=== PATIENT | female | born 1980 | race Caucasian/White ===

== ENCOUNTER 2016-11-07 13:01 | Emergency (ER) | payer BC ==
[2016-11-07 13:22] VITALS: BP 115/77
--- NOTE | 2016-11-07 13:49 | UC ---
Abdominal Pain Female HPI - HPI Summary HPI Summary: patient presents with significatn ULQ pain that radiates to her back. she has had a few day of diarrhea, but denies any nausea/vomiting or fever. - History of Current Complaint Chief Complaint: UCGI Stated Complaint: ABD/BACK PAIN Time Seen by Provider: 11/07/16 13:31 Hx Obtained From: Patient Hx Last Menstrual Period: 10/11/16 ?: No Onset/Duration: Sudden Onset, Lasting Hours Timing: Constant Severity Initially: Moderate Severity Currently: Severe Location: Discrete At: LUQ Radiates: Yes Radiates to: Back Character: Burning, Cramping, Sharp Aggravating Factor(s): Movement, Deep Breaths Alleviating Factor(s): Nothing Associated Signs and Symptoms: Positive: Back Pain, Decreased Appetite, Diarrhea - Risk Factors Ectopic Risk Factor: Negative Ovarian Torsion Risk Factor: Negative Allergies/Adverse Reactions: Allergies Allergy/AdvReac Type Severity Reaction Status Date / Time No Known Allergies Allergy Verified 11/07/16 13:22 Home Medications: Home Medications Meloxicam [Mobic] 15 mg PO PRN 11/07/16 [History] PMH/Surg Hx/FS Hx/Imm Hx Previously Healthy: Yes - Surgical History Surgical History: Yes Surgery Procedure, Year, and Place: gallbladder, R eye, c-sections x 2 - Family History Known Family History: Positive: Hypertension - Social History Alcohol Use: Occasionally Substance Use Type: None Smoking Status (MU): Heavy Every Day Tobacco Smoker Type: Cigarettes Amount Used/How Often: 1/2 ppd Length of Time of Smoking/Using Tobacco: started at age 20 Have You Smoked in the Last Year: Yes Review of Systems Constitutional: Negative Skin: Negative Eyes: Negative ENT: Negative Respiratory: Negative Cardiovascular: Negative Gastrointestinal: Abdominal Pain, Diarrhea Genitourinary: Negative Motor: Negative Neurovascular: Negative Musculoskeletal: Myalgia - ribs and abdomen, Neurological: Negative Psychological: Negative All Other Systems Reviewed And Are Negative: Yes Physical Exam Triage Information Reviewed: Yes Appearance: Well-Nourished, Ill-Appearing, Pain Distress Vital Signs: Initial Vital Signs Temp 99.1 F 11/07/16 13:15 Pulse 80 11/07/16 13:15 Resp 16 11/07/16 13:15 BP 115/77 11/07/16 13:15 Pulse Ox 98 11/07/16 13:15 Vital Signs Reviewed: Yes Eye Exam: Normal Eyes: Positive: Conjunctiva Clear ENT Exam: Normal ENT: Positive: Normal ENT inspection, Hearing grossly normal, Pharynx normal, TMs normal Dental Exam: Normal Neck exam: Normal Neck: Positive: Supple, Nontender, No Lymphadenopathy Respiratory Exam: Normal Respiratory: Positive: Chest non-tender, Lungs clear, Normal breath sounds Cardiovascular Exam: Normal Cardiovascular: Positive: RRR, No Murmur, Pulses Normal Abdominal Exam: Normal - diffuse tenderness along upper abdomen, neg CVA tenderness Abdomen Description: Positive: Guarding - with exam, Peritoneal Signs - negative Bowel Sounds: Positive: Present Musculoskeletal Exam: Normal Musculoskeletal: Positive: Strength Intact, ROM Intact, No Edema Neurological Exam: Normal Neurological: Positive: Alert, Muscle Tone Normal Psychological Exam: Normal Skin Exam: Normal - no brusing, or petechia noted Abd Pain Female Course/Dx - Course Course Of Treatment: hx obtained, exam performed, sent ot ER via private car for higher level of care - Differential Dx/Diagnosis Differential Diagnosis: Abdominal Aortic Aneurysm, Diverticulitis, Pancreatitis , Renal Colic, Urinary Tract Infection Provider Diagnoses: ULQ pain - Physician Notification/Consults Discussed Patient Care With: Alessia Mireles NP Instructed by Provider To: MD Will See In ED Discharge - Discharge Plan Condition: Stable Disposition: [facility]
== END 2016-11-07 14:04 | disposition left against medical advice (07) ==
LOC: UCCORT 13:01
DX: R10.12 Left upper quadrant pain (principal); M54.9 Dorsalgia, unspecified; Z90.49 Acquired absence of other specified parts of digestive tract; F17.210 Nicotine dependence, cigarettes, uncomplicated
CPT/HCPCS: 87086; 99202; G0463

== ENCOUNTER 2017-07-18 08:00 | Emergency (ER) | payer BC ==
[2017-07-18 10:09] VITALS: BP 115/82
--- NOTE | 2017-07-18 10:15 | UC ---
Ear Complaint HPI - HPI Summary HPI Summary: ONSET OF RIGHT EAR PAIN AND DECREASED HEARING YESTERDAY. NO FEVER, NO DISCHARGE FROM THE EAR. HAS HAD URI SX - COUGH/CONGESTION FOR ABOUT A WEEK. - History of Current Complaint Chief Complaint: UCEar Stated Complaint: EAR INFECTION Time Seen by Provider: 07/18/17 09:44 Hx Obtained From: Patient Hx Last Menstrual Period: 07/08/17 Onset/Duration: Sudden Onset, Lasting Hours Severity Initially: Moderate Severity Currently: Moderate Pain Intensity: 9 Pain Scale Used: 0-10 Numeric Aggravating Factors: Nothing Alleviating Factors: Nothing Associated Signs/Symptoms: Positive: Hearing Loss, URI Symptoms. Negative: Discharge - Allergies/Home Medications Allergies/Adverse Reactions: Allergies Allergy/AdvReac Type Severity Reaction Status Date / Time No Known Allergies Allergy Verified 07/18/17 08:07 Home Medications: Home Medications Dicyclomine CAP* [Bentyl CAP*] 10 mg PO BID 07/18/17 [History Confirmed 07/18/17 ] Ibuprofen TAB* [Advil TAB*] 400 mg PO Q6H PRN 07/18/17 [History Confirmed ] PARoxetine HCL TAB* [Paxil TAB*] 10 mg PO DAILY 07/18/17 [History Confirmed ] PMH/Surg Hx/FS Hx/Imm Hx Other GI/ History: IBS Psychological History: Depression - Surgical History Surgical History: Yes Surgery Procedure, Year, and Place: gallbladder, R eye, c-sections x 2 - Family History Known Family History: Positive: Hypertension - Social History Alcohol Use: Occasionally Substance Use Type: None Smoking Status (MU): Heavy Every Day Tobacco Smoker Type: Cigarettes Amount Used/How Often: 1/2 ppd Length of Time of Smoking/Using Tobacco: started at age 20 Have You Smoked in the Last Year: Yes Household Exposure Type: Cigarettes Review of Systems Constitutional: Negative ENT: Ear Ache, Nasal Discharge Respiratory: Cough Cardiovascular: Negative Gastrointestinal: Negative All Other Systems Reviewed And Are Negative: Yes Physical Exam Triage Information Reviewed: Yes Appearance: Well-Appearing, Well-Nourished, Pain Distress - MOD Vital Signs: Initial Vital Signs Temp 98 F 07/18/17 08:09 Pulse 68 07/18/17 08:09 Resp 16 07/18/17 08:09 BP 112/78 07/18/17 08:09 Pulse Ox 97 07/18/17 08:09 Vital Signs Reviewed: Yes Eyes: Positive: Conjunctiva Clear ENT: Positive: Hearing grossly normal, Pharynx normal, TM bulging - RIGHT, TM dull - RIGHT, TM red - RIGHT, Other - RIGHT EAC SLIGHTLY EDEMATOUS WITH SOME DEBRIS. LEFT TM NORMAL Neck: Positive: Supple, Nontender, No Lymphadenopathy Respiratory Exam: Normal Cardiovascular Exam: Normal Abdomen Description: Positive: Soft Musculoskeletal: Positive: No Edema Neurological: Positive: Alert Psychological: Positive: Age Appropriate Behavior Skin: Negative: rashes Ear Complaint Course/Dx - Differential Dx/Diagnosis Provider Diagnoses: RIGHT AOM Discharge - Discharge Plan Condition: Stable Disposition: HOME Prescriptions: Amoxicillin PO (*) [Amoxicillin 500 MG CAP*] 1,000 mg PO Q12H #28 cap Neomyc/Polym/HC 1% OTIC SUSP* [Cortisporin Otic Susp 1%*] 4 drop BOTH EARS TID # 1 btl Patient Education Materials: Otitis Media (ED) Forms: *Work Release Referrals: Fidel Watters DO [Primary Care Provider] - If Needed
== END 2017-07-18 10:15 | disposition home or self-care (01) ==
LOC: UCCORT 08:00
DX: H66.91 Otitis media, unspecified, right ear (principal); K58.9 Irritable bowel syndrome, unspecified; F32.9 Major depressive disorder, single episode, unspecified; Z90.49 Acquired absence of other specified parts of digestive tract; F17.210 Nicotine dependence, cigarettes, uncomplicated
CPT/HCPCS: 99212; G0463

== ENCOUNTER 2017-07-29 13:40 | Emergency (ER) | payer BC ==
[2017-07-29 14:12] VITALS: BP 109/63
--- NOTE | 2017-07-29 14:29 | UC ---
Ear Complaint HPI - HPI Summary HPI Summary: 37 year old female with complaints of right ear pain. Pt reports being prescribe medication here at [facility] 2 weeks ago and she took only 1/2 the dose for 3 days. wHen she realized she was taking the wrong dose her primary care changed her prescription to zpack. She finished zpack but pain and muffled hearing continue. Denies fever, headache or chills. She is using steroid nasal spray daily for 5 days Smoker - History of Current Complaint Chief Complaint: UCEar Stated Complaint: RT EAR ACHE Time Seen by Provider: 07/29/17 14:06 Hx Obtained From: Patient Hx Last Menstrual Period: 07/08/17 Onset/Duration: Gradual Onset, Lasting Weeks - 2, Still Present Severity Initially: Severe Severity Currently: Moderate Pain Scale Used: 0-10 Numeric - 2 Associated Signs/Symptoms: Positive: Hearing Loss - muffled sound, URI Symptoms. Negative: Discharge, Foreign Body Sensation, Trauma to Ear, Swelling @ Related History: Smoking - Allergies/Home Medications Allergies/Adverse Reactions: Allergies Allergy/AdvReac Type Severity Reaction Status Date / Time No Known Allergies Allergy Verified 07/29/17 14:12 Home Medications: Home Medications Azithromycin TAB* [Zithromax TAB (Z-NOEL) 250 mg #6 tabs] 250 mg PO DAILY [History Confirmed 07/29/17] PMH/Surg Hx/FS Hx/Imm Hx Previously Healthy: Yes - Surgical History Surgical History: Yes Surgery Procedure, Year, and Place: gallbladder, R eye, c-sections x 2 - Family History Known Family History: Positive: Hypertension Negative: Diabetes - Social History Occupation: Employed Full-time - teacher Lives: With Family Alcohol Use: Occasionally Substance Use Type: None Smoking Status (MU): Heavy Every Day Tobacco Smoker Type: Cigarettes Amount Used/How Often: 1/2 ppd Length of Time of Smoking/Using Tobacco: started at age 20 Have You Smoked in the Last Year: Yes Household Exposure Type: Cigarettes Cessation Counseling: Counseled 3+Min - 10 Min - states she does want to stop but has too much stress in her life and will work with her doctor. Review of Systems Constitutional: Negative Skin: Negative Eyes: Negative ENT: Ear Ache - right Respiratory: Negative Cardiovascular: Negative Gastrointestinal: Negative Genitourinary: Negative Motor: Negative Neurovascular: Negative Musculoskeletal: Negative Neurological: Negative Psychological: Negative Is Patient Immunocompromised?: No All Other Systems Reviewed And Are Negative: Yes Physical Exam Triage Information Reviewed: Yes Appearance: Well-Nourished, Ill-Appearing - mildly Vital Signs: Initial Vital Signs Temp 98.5 F 07/29/17 14:08 Pulse 84 07/29/17 14:08 Resp 14 07/29/17 14:08 BP 109/63 07/29/17 14:08 Pulse Ox 98 07/29/17 14:08 Vital Signs Reviewed: Yes Eyes: Positive: Conjunctiva Clear. Negative: Discharge ENT: Positive: Pharynx normal, Nasal congestion, TM bulging - right, TM dull - with fluid left, TM red - right, Uvula midline. Negative: Tonsillar swelling, Tonsillar exudate Neck: Positive: Supple, Nontender, Enlarged Nodes @ - bilateral AC Respiratory: Positive: Lungs clear, Normal breath sounds, No respiratory distress Cardiovascular: Positive: RRR, No Murmur Abdomen Description: Positive: Nontender, Soft Musculoskeletal: Positive: Strength Intact, ROM Intact, No Edema Neurological: Positive: Alert, Muscle Tone Normal Psychological: Positive: Age Appropriate Behavior - pleasant and cooperative Skin: Negative: rashes, breakdown Ear Complaint Course/Dx - Course Course Of Treatment: Education about antibiotis, decongestants, and nasal spray. Established plan to follow up with ENT due to length of symptoms. Encouraged her to stop smoking - Differential Dx/Diagnosis Differential Diagnosis/HQI/PQRI: Cerumen Impaction, Otitis Media, URI Provider Diagnoses: Right Otitis Media. URI. Smoker Discharge - Discharge Plan Condition: Stable Disposition: HOME Prescriptions: Amoxicillin/Clavulanate TAB* [Augmentin TAB 875*] 875 mg PO BID #20 tab Patient Education Materials: Otitis Media (ED), Amoxicillin/Clavulanate Potassium (By mouth) Referrals: Fidel Watters DO [Primary Care Provider] - Sherwin Duggan MD [Medical Doctor] - Additional Instructions: Continue your steroid nasal spay Also start OTC decongestant as per the packaging instructions
== END 2017-07-29 14:39 | disposition home or self-care (01) ==
LOC: UCCORT 13:40
DX: H66.91 Otitis media, unspecified, right ear (principal); J06.9 Acute upper respiratory infection, unspecified; Z71.6 Tobacco abuse counseling; F17.210 Nicotine dependence, cigarettes, uncomplicated
CPT/HCPCS: 99212; G0463